=== PATIENT | female | born 1955 | race Caucasian/White ===

== ENCOUNTER 2017-07-06 06:03 | Day surgery (SDC) | payer OTHER ==
[2017-07-06] MEDS ORDERED: Dextrose 5%-Lactated Ringers 1,000 ML IV SCH (06:30)
[2017-07-06] MEDS ORDERED: Propofol 200 MG/20 ML SDV ONE (07:01)
[2017-07-06] MEDS ORDERED: Midazolam 1 MG/ML 2 ML SDV ONE (07:02)
[2017-07-06] MEDS ORDERED: fentaNYL 100 MCG/2 ML SDV ONE (07:02)
[2017-07-06] MEDS ORDERED: Glycopyrrolate 0.2 MG/ML 2 ML SDV IVPUSH ONE (07:30)
--- NOTE | 2017-07-12 09:55 | OR ---
DATE OF PROCEDURE: 07/06/2017 PREOPERATIVE DIAGNOSES: 1. Gastroesophageal reflux disease. 2. Indications for screening colonoscopy. POSTOPERATIVE DIAGNOSES: 1. Upper GI endoscopy showing:. a. Mild antral gastritis. b. Ruled out multiple gastric polyps. 2. Normal colonoscopic examination. OPERATIVE PROCEDURE: 1. Esophagogastroduodenoscopy with:. a. Biopsies of antrum for CLOtest (56714). b. Gastric polypectomy (18585). 2. Flexible colonoscopy ([id number]). ANESTHESIA: IV sedation. INDICATIONS FOR PROCEDURE: This is a 62-year-old with longstanding history of some epigastric discomfort along with some reflux type symptoms, presently well managed on Prevacid and Reglan. Plan is to proceed with an upper GI endoscopy with biopsies and/or polypectomy as indicated. Additionally, the patient must undergo a screening colonoscopy with biopsies and/or polypectomy as indicated as well. Potential risks including bleeding and perforation were discussed, and the patient wishes to proceed. DETAILS OF PROCEDURE: The patient was taken to the operating room and placed in a left lateral decubitus position. IV sedation was administered, after which the upper GI endoscope was passed orally through the length of the esophagus and into the stomach with retroflexion view of the fundus; thereafter through the pyloric channel and into the proximal duodenum. Findings included a normal hypopharynx, larynx, upper esophageal sphincter, and esophageal body. At the EG junction, there was a minimal if any hiatal hernia. There was no upward extension of the gastroesophageal junction mucosal line or other signs of neoplastic changes and no stricturing identified. Overall, there is no gross inflammation at the EG junction. Within the stomach, it was notable that the parietal cell-bearing portions of the stomach, i.e. those with rugal folds in the fundus and body had multitude of polyps, these most likely would be benign gastric fundic polyps related to long-term PPI use. Otherwise, there is some mild redness in the pre-pyloric area. The pyloric channel and duodenum to the junction of the third and fourth portions were unremarkable. At this point, biopsies were obtained from the antrum and sent for CLOtest for H. pylori and following this, the largest of the polyps was encircled at its base and cauterized with the cautery snare. This was then placed in a basket and retrieved and sent for histologic evaluation. There appeared to be good hemostasis at both biopsy and polypectomy sites. The scope was then withdrawn and attention then taken to the colonoscopy. The initial digital rectal exam was performed and was unremarkable. Colonoscope was then passed into the rectum with retroflexion view of the hemorrhoidal columns which were otherwise unremarkable. Colonoscope was then passed to the level of the cecum. The prep was quite good with there being only small amount of liquid stool present. To that level, no abnormalities were noted. Specifically, there were no diverticula, no areas of colitis, and no polyps or other signs of neoplasia. The scope was then withdrawn and the procedure then concluded. The patient was taken to the recovery room in satisfactory condition. The plan will be to proceed with a repeat colonoscopy in 10 years. We will notify the patient regarding the results of CLOtest and polypectomy specimens. Otherwise, we will continue with the present medical management for upper GI symptoms. Solomon Armstrong MD /[id number]
== END 2017-07-06 10:05 | disposition home or self-care (01) ==
LOC: JP.SDS 06:03
PROVIDERS: ATTEND Surgery
DX: Z12.11 Encounter for screening for malignant neoplasm of colon (principal); K31.7 Polyp of stomach and duodenum; Z88.8 Allergy status to other drugs, medicaments and biological substances
CPT/HCPCS: 43239; 43251; 45378; 87081; 88305; J2250; J2704; J3010; J7042; J3490

== ENCOUNTER 2018-05-30 02:11 | Emergency (ER) | payer OTHER ==
[2018-05-30] MEDS ORDERED: Alum Hydrox/Mag Hydrox/Simeth 30 ML, Lidocaine 2% 15 ML PO ONE ×2 (02:41)
[2018-05-30] MEDS ORDERED: Sodium Chloride 0.9% 10 ML Syringe FLUSH PRN (02:41)
--- NOTE | 2018-05-30 02:48 | EDM.PDOC ---
ED HPI GENERAL MEDICAL PROBLEM - General Chief Complaint: Chest Pain Stated Complaint: CHEST APIN Time Seen by Provider: 05/30/18 02:40 Source of Information: Reports: Patient History Limitations: Reports: No Limitations - History of Present Illness INITIAL COMMENTS - FREE TEXT/NARRATIVE: This lady complains of SSCP radiating to the back that began at 1230 am. It's continuous, made slightly worse (?) by breathing but not movements. She took Prevacid but this didn't help. She didn't try any antacids. Pain is sharp stabbing. No history previous similar problem. - Related Data Allergies Allergy/AdvReac Type Severity Reaction Status Date / Time codeine Allergy Severe Anaphylactic Verified 05/30/18 02:21 Shock estrogens, conjugated Allergy Rash Verified 05/30/18 02:21 [From Premarin] omeprazole AdvReac Nausea Verified 05/30/18 02:21 Home Meds: Home Meds Polyethylene Glycol/Polyvinyl [Hypotears Eye Drops] 1 drop EYEBOTH DAILY [History] Famciclovir [Famvir] 1,500 mg PO ONETIME 08/13/17 [History] Lansoprazole [Prevacid] 15 mg PO ASDIRECTED 05/30/18 [History] Metoclopramide HCl [Reglan] 5 mg PO ASDIRECTED 05/30/18 [History] Past Medical History HEENT History: Reports: Cataract Cardiovascular History: Reports: Other (See Below) Other Cardiovascular History: had an epsisode of chest pressure with stress test. 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: Musculoskeletal History: Reports: Arthritis, Neck Pain, Chronic, Other (See Below) Other Musculoskeletal History: history cortisone injections brittany shoulders, back , right index finger Neurological History: Reports: Vertigo - Infectious Disease History Infectious Disease History: Reports: Chicken Pox, Influenza, Measles, Mumps - Past Surgical History HEENT Surgical History: Reports: Cataract Surgery, Naso-Sinus Surgery, Oral Surgery, Tonsillectomy GI Surgical History: Reports: Appendectomy, Colonoscopy, EGD Female Surgical History: Reports: Breast Biopsy Neurological Surgical History: Reports: None Musculoskeletal Surgical History: Reports: None Social & Family History - Family History Family Medical History: Noncontributory - Tobacco Use Smoking Status *Q: Never Smoker - Caffeine Use Caffeine Use: Reports: Coffee - Recreational Drug Use Recreational Drug Use: No ED ROS GENERAL - Review of Systems Review Of Systems: ROS reveals no pertinent complaints other than HPI. ED EXAM, GENERAL - Physical Exam Exam: See Below Exam Limited By: No Limitations General Appearance: Alert, WD/WN, Mild Distress Eye Exam: Bilateral Eye: Normal Inspection Neck: Supple Respiratory/Chest: Lungs Clear, Normal Breath Sounds, Chest Non-Tender Cardiovascular: Regular Rate, Rhythm, No Murmur Peripheral Pulses: 2+: Radial (L), Radial (R) GI/Abdominal: Non-Tender Back Exam: Normal Inspection Extremities: Normal Inspection Neurological: Alert, Oriented Psychiatric: Normal Affect Skin Exam: Warm, Dry Course - Vital Signs Last Recorded V/S: Last Vital Signs Temp 36.9 C 05/30/18 02:23 Pulse 98 05/30/18 05:27 Resp 16 05/30/18 05:27 BP 91/67 05/30/18 05:27 Pulse Ox 98 05/30/18 05:27 - Orders/Labs/Meds Orders: Active Orders 24 hr Category Date Time Status EKG Documentation Completion [RC] ASDIRECTED Care 05/30/18 02:42 Active Chest 1V Frontal [CR] Urgent Exams 05/30/18 02:41 Taken Nitroglycerin [Nitrostat] Med 05/30/18 02:54 Active 0.4 mg SL Q5M PRN Sodium Chloride 0.9% [Saline Flush] Med 05/30/18 02:41 Active 10 ml FLUSH ASDIRECTED PRN Saline Lock Insert [OM.PC] Urgent Oth 05/30/18 02:41 Ordered EKG 12 Lead [EK] Urgent Ther 05/30/18 02:41 Ordered Medication Orders Nitroglycerin (Nitrostat) 0.4 mg SL Q5M PRN PRN Reason: Chest Pain Last Admin: 05/30/18 03:13 Dose: 0.4 mg Admin: 05/30/18 02:58 Dose: 0.4 mg Sodium Chloride (Saline Flush) 10 ml FLUSH ASDIRECTED PRN PRN Reason: Keep Vein Open Last Admin: 05/30/18 02:46 Dose: 10 ml Labs: Laboratory Tests 05/30/18 05/30/18 05/30/18 Range/Units 02:20 02:41 02:41 WBC 10.8 (4.5-11.0) K/uL RBC 4.73 (3.30-5.50) M/uL Hgb 13.7 (12.0-15.0) g/dL Hct 41.2 (36.0-48.0) % MCV 87 (80-98) fL MCH 29 (27-31) pg MCHC 33 (32-36) % Plt Count 314 (150-400) K/uL Neut % (Auto) 60 (36-66) % Lymph % (Auto) 23 L (24-44) % [place] % (Auto) 11 H (2-6) % Eos % (Auto) 6 H (2-4) % Baso % (Auto) 1 (0-1) % D-Dimer, Quantitative < 100 (0.0-400.0) ng/mL Sodium 139 L (140-148) mmol/L Potassium 4.1 (3.6-5.2) mmol/L Chloride 103 (100-108) mmol/L Carbon Dioxide 30 (21-32) mmol/L Anion Gap 10.1 (5.0-14.0) mmol/L BUN 18 (7-18) mg/dL Creatinine 1.0 (0.6-1.0) mg/dL Est Cr Clr Drug Dosing 46.19 mL/min Estimated GFR (MDRD) 56 L (>60) Glucose 96 (74-106) mg/dL Calcium 8.8 (8.5-10.1) mg/dL Total Bilirubin 0.3 (0.2-1.0) mg/dL AST 24 (15-37) U/L ALT 36 (12-78) U/L Alkaline Phosphatase 67 (46-116) U/L Troponin I < 0.017 (0.000-0.056) ng/mL Total Protein 6.6 (6.4-8.2) g/dL Albumin 3.7 (3.4-5.0) g/dL Globulin 2.9 (2.3-3.5) g/dL Albumin/Globulin Ratio 1.3 (1.2-2.2) 05/30/18 Range/Units 05:30 WBC (4.5-11.0) K/uL RBC (3.30-5.50) M/uL Hgb (12.0-15.0) g/dL Hct (36.0-48.0) % MCV (80-98) fL MCH (27-31) pg MCHC (32-36) % Plt Count (150-400) K/uL Neut % (Auto) (36-66) % Lymph % (Auto) (24-44) % [place] % (Auto) (2-6) % Eos % (Auto) (2-4) % Baso % (Auto) (0-1) % D-Dimer, Quantitative (0.0-400.0) ng/mL Sodium (140-148) mmol/L Potassium (3.6-5.2) mmol/L Chloride (100-108) mmol/L Carbon Dioxide (21-32) mmol/L Anion Gap (5.0-14.0) mmol/L BUN (7-18) mg/dL Creatinine (0.6-1.0) mg/dL Est Cr Clr Drug Dosing mL/min Estimated GFR (MDRD) (>60) Glucose (74-106) mg/dL Calcium (8.5-10.1) mg/dL Total Bilirubin (0.2-1.0) mg/dL AST (15-37) U/L ALT (12-78) U/L Alkaline Phosphatase (46-116) U/L Troponin I < 0.017 (0.000-0.056) ng/mL Total Protein (6.4-8.2) g/dL Albumin (3.4-5.0) g/dL Globulin (2.3-3.5) g/dL Albumin/Globulin Ratio (1.2-2.2) Meds: Medications Generic Name Dose Route Start Last Admin Trade Name Freq PRN Reason Stop Dose Admin Nitroglycerin 0.4 mg 05/30/18 02:54 05/30/18 03:13 Nitrostat SL 0.4 mg Q5M PRN Administration Chest Pain Sodium Chloride 10 ml 05/30/18 02:41 05/30/18 02:46 Saline Flush FLUSH 10 ml ASDIRECTED PRN Administration Keep Vein Open Discontinued Medications Generic Name Dose Route Start Last Admin Trade Name Freq PRN Reason Stop Dose Admin Al Hydroxide/Mg Hydroxide 30 0 ml 05/30/18 02:41 05/30/18 02:45 ml/ Lidocaine HCl 15 ml PO 05/30/18 02:42 15 ml ONETIME ONE Administration Nitroglycerin Confirm 05/30/18 02:55 05/30/18 02:59 Nitrostat Administered 05/30/18 02:56 Not Given Dose 0.4 mg .ROUTE .STK-MED ONE - Re-Assessments/Exams Free Text/Narrative Re-Assessment/Exam: 05/30/18 06:24 2 ekg's show nsr with normal QRS, ST and T waves. 2 troponins neg. D-dimer neg. Initially she received a GI cocktail that had no effect. She then received 2 sl NTG. first one brought pain from 7 to 2. A second one relieved it completely. A 3 hour troponin was done and was neg. Pain likely due to esophageal spasm. Will need to decide if she needs stress testing and she will discuss with her doctor and her Dr Magallanes. Departure - Departure Time of Disposition: 06:17 Disposition: Home, Self-Care 01 Condition: Fair Clinical Impression: Chest pain Instructions: Nonspecific Chest Pain Referrals: PCP,None [Primary Care Provider] - Forms: ED Department Discharge Additional Instructions: Most likely this pain was caused by an esophageal spasm. All tests were negative. You and your doctor will need to decide whether or not you need further testing such as a stress test. Ask your doctor if 81 mg aspirin daily would be advisable. - My Orders Last 24 Hours: My Active Orders 05/30/18 02:41 Chest 1V Frontal [CR] Urgent Sodium Chloride 0.9% [Saline Flush] 10 ml FLUSH ASDIRECTED PRN Saline Lock Insert [OM.PC] Urgent EKG 12 Lead [EK] Urgent 05/30/18 02:42 EKG Documentation Completion [RC] ASDIRECTED 05/30/18 02:54 Nitroglycerin [Nitrostat] 0.4 mg SL Q5M PRN - Assessment/Plan Last 24 Hours: My Active Orders 05/30/18 02:41 Chest 1V Frontal [CR] Urgent Sodium Chloride 0.9% [Saline Flush] 10 ml FLUSH ASDIRECTED PRN Saline Lock Insert [OM.PC] Urgent EKG 12 Lead [EK] Urgent 05/30/18 02:42 EKG Documentation Completion [RC] ASDIRECTED 05/30/18 02:54 Nitroglycerin [Nitrostat] 0.4 mg SL Q5M PRN
[2018-05-30] MEDS ORDERED: Nitroglycerin 0.4 MG Tab.SL ONE (02:55)
[2018-05-30] MEDS: Nitroglycerin 0.4 MG Tab.SL SL PRN ×2 (02:58→03:13)
--- NOTE | 2018-05-31 08:54 | CR ---
CHEST: Portable CLINICAL HISTORY:Chest pain COMPARISON:None FINDINGS: The lungs are hyperaerated but clear. Heart size and pulmonary vascularity are normal. The re are atherosclerotic changes in the aorta. Impression: Emphysematous changes No acute cardiopulmonary process.
== END 2018-05-30 06:34 | disposition home or self-care (01) ==
LOC: JP.ED 02:11
DX: R07.9 Chest pain, unspecified (principal); Z88.5 Allergy status to narcotic agent; Z88.8 Allergy status to other drugs, medicaments and biological substances
CPT/HCPCS: 36415; 71045; 80053; 84484; 85025; 85379; 93005; 99285; A9270; J7050

== ENCOUNTER 2021-08-27 05:32 | Day surgery (SDC) | payer OTHER ==
[2021-08-27] MEDS ORDERED: Dextrose 5%-Lactated Ringers 1,000 ML IV SCH (06:00)
[2021-08-27] MEDS ORDERED: Acetaminophen 500 MG Tab PO ONE (06:00)
[2021-08-27] MEDS ORDERED: cefOXitin 2 GM in Sodium Chloride 0.9% 50 ML IV ONE (06:00)
[2021-08-27] MEDS ORDERED: fentaNYL 250 MCG/5 ML SDV ONE (06:09)
[2021-08-27] MEDS ORDERED: Glycopyrrolate 0.2 MG/ML 5 ML MDV ONE (06:11)
[2021-08-27] MEDS ORDERED: Propofol 200 MG/20 ML SDV ONE (06:11)
[2021-08-27] MEDS ORDERED: Neostigmine Methylsulfate 1 MG/ML 5 ML Syringe ONE (06:11)
[2021-08-27] MEDS ORDERED: Ketorolac 30 MG/ML SDV ONE (06:11)
[2021-08-27] MEDS ORDERED: Lidocaine 2% 5 ML SDV ONE (06:11)
[2021-08-27] MEDS ORDERED: Rocuronium 50 MG/5 ML Vial ONE (06:11)
[2021-08-27] MEDS ORDERED: Ondansetron 4 MG/2 ML SDV ONE (06:11)
[2021-08-27] MEDS ORDERED: Dexamethasone 4 MG/ML SDV ONE (06:11)
[2021-08-27] MEDS ORDERED: Bupivacaine 0.5%/EPINEPHrine 1:200,000 50 ML MDV ONE (06:32)
[2021-08-27] MEDS ORDERED: Ibuprofen 200 MG Tab, 24 Tab Bulk Bottle PO ONE (06:40)
[2021-08-27] MEDS ORDERED: Midazolam 1 MG/ML 2 ML SDV ONE (07:12)
[2021-08-27] MEDS ORDERED: Ibuprofen 600 MG Tab PO ONE (07:15)
[2021-08-27] MEDS ORDERED: Ketamine 500 MG/5 ML MDV IV SCH (07:30)
[2021-08-27] MEDS ORDERED: Ketamine 16 MG in Sodium Chloride 0.9% 19.84 ML IV SCH (07:30)
[2021-08-27] MEDS ORDERED: Lidocaine 1% 50 ML MDV ONE (07:34)
[2021-08-27] MEDS ORDERED: Sugammadex Sodium 200 MG/2 ML VIAL ONE (07:55)
[2021-08-27] MEDS ORDERED: Sodium Chloride 0.9% 10 ML ONE (08:28)
[2021-08-27] MEDS ORDERED: Naloxone 0.4 MG/ML SDV ONE (08:28)
[2021-08-27] MEDS ORDERED: fentaNYL 100 MCG/2 ML SDV IVPUSH ONE (09:00)
[2021-08-27] MEDS ORDERED: traMADol 50 MG Tab PO ONE (10:01)
--- NOTE | 2021-08-29 10:03 | OR ---
DATE OF PROCEDURE: 08/27/2021 SURGEON: Solomon Armstrong MD PREOPERATIVE DIAGNOSIS: Biliary dyskinesia. POSTOPERATIVE DIAGNOSES: 1. Biliary dyskinesia. 2. Enlarged cricket hepatis lymph node. OPERATIVE PROCEDURES: Diagnostic laparoscopy with: 1. Cholecystectomy (85228). 2. Excision of cricket hepatis lymph node ([id number]). ANESTHESIA: General. ASSISTANTS: Mariella Krueger PA-C, and CARMELO Mejia. INDICATION FOR PROCEDURE: A 66-year-old female presenting with some ongoing postprandial nausea and epigastric discomfort. A CCK-stimulated HIDA scan was undertaken as part of the workup, which showed a below-normal ejection fraction, and it reproduced at least a portion of the patient's symptoms. The plan is to proceed with a laparoscopic or if necessary open cholecystectomy. Potential risks of the procedure; including bleeding; infection; injury to underlying viscera; possible migration of any stones into the common bile duct, which might require additional procedures for correction; and possibility of persistent symptoms postoperatively; were all reviewed; and the patient wishes to proceed. DETAILS OF PROCEDURE: The patient was taken to the operating room and placed in a supine position. After general endotracheal anesthesia was induced, she was converted to a lithotomy position and the abdomen prepped and draped. A transverse subumbilical incision was made and a Veress needle inserted. The peritoneal cavity was inflated to 15 mmHg pressure with CO2, after which an Optiview trocar was placed through the subumbilical incision site and into the intraperitoneal cavity. No underlying trocar insertion site injury was evident. Upon entrance of the scope once again a 12 mm epigastric trocar was placed along with a 5 mm right abdominal trocar. Bilateral transversus abdominis plane blocks were then placed. The gallbladder was noted to be somewhat edematous and somewhat montes in appearance and not a normal . This was retracted anteriorly and laterally, and dissection began on the gallbladder neck with Harmonic scalpel and continued around the gallbladder neck and cystic duct junction. Cystic artery and adjacent cystic duct were then identified, and both were clipped 3 times proximally and once distally and divided. The gallbladder was then dissected off the gallbladder bed using a combination of Harmonic scalpel and cautery and delivered intact through the epigastric trocar site. A small amount of sludge was present within the gallbladder, which was evacuated upon opening of the gallbladder. The patient had a prominent cricket hepatis lymph node that was located in somewhat of a retroperitoneal area behind the portal vein and common bile duct. This was excised and sent for histologic evaluation and was probably related to the inflammation of the gallbladder at the neck and neoplastic. At this point, no further problems were noted. The trocars were removed and the peritoneal cavity deflated. The fascia at the 12 mm trocar site was closed with 0 Vicryl stitch and the skin with 4-0 Vicryl skin stitch. The wounds were anesthetized with 1% lidocaine mixed with Marcaine. No drain was placed. The patient was taken to the recovery room in satisfactory condition. Physician communications assistant, Mariella Krueger, played an essential role in assisting in this case, helping to position the patient and retract structures as needed as well as suturing and cutting sutures as indicated. Her presence improved patient safety and decreased the operative time. Solomon Armstrong MD /[id number]
== END 2021-08-27 12:00 | disposition home or self-care (01) ==
LOC: JP.SDS 05:32
PROVIDERS: ATTEND Surgery
DX: K81.1 Chronic cholecystitis (principal); K82.8 Other specified diseases of gallbladder; R59.0 Localized enlarged lymph nodes; E78.5 Hyperlipidemia, unspecified; M81.0 Age-related osteoporosis without current pathological fracture; J45.909 Unspecified asthma, uncomplicated; Z79.899 Other long term (current) drug therapy; Z88.5 Allergy status to narcotic agent; Z88.7 Allergy status to serum and vaccine; Z90.49 Acquired absence of other specified parts of digestive tract; Z88.8 Allergy status to other drugs, medicaments and biological substances
CPT/HCPCS: 36415; 38570; 47562; 80053; 83735; 84100; 85027; A9270; J0171; J0694; J1100; J1885; J2001; J2250; J2310; J2405; J2704; J2795; J3010; J3490; J7121; J2710

== ENCOUNTER 2022-10-17 07:00 | Day surgery (SDC) | payer OTHER ==
[~2022-10-17 07:00] MED LIST: Midazolam 1 MG/ML 2 ML SDV ONE; Propofol 200 MG/20 ML SDV ONE; fentaNYL 50 MCG/ML SDV ONE
[2022-10-17] MEDS ORDERED: Dextrose 5%-Lactated Ringers 1,000 ML IV SCH (07:30)
[2022-10-17] MEDS ORDERED: Propofol 200 MG/20 ML SDV ONE (09:42)
[2022-10-17] MEDS ORDERED: Pantoprazole 40 MG Vial IVPUSH ONE (10:07)
== END 2022-10-17 12:00 | disposition home or self-care (01) ==
LOC: JP.SDS 07:00
PROVIDERS: ATTEND Surgery
DX: K29.70 Gastritis, unspecified, without bleeding (principal); K20.90 Esophagitis, unspecified without bleeding; K44.9 Diaphragmatic hernia without obstruction or gangrene; K57.30 Diverticulosis of large intestine without perforation or abscess without bleeding
CPT/HCPCS: 87081; C9113; J2250; J2704; J3010; J7121

== ENCOUNTER 2023-12-17 06:26 | Day surgery (SDC) | payer OTHER ==
[2023-12-17] MEDS: Sodium Chloride 0.9% 1,000 ML IV SCH (07:16)
[2023-12-17] MEDS ORDERED: Propofol 200 MG/20 ML SDV ONE (07:19)
[2023-12-17] MEDS ORDERED: fentaNYL 100 MCG/2 ML SDV ONE (07:19)
== END 2023-12-17 09:15 | disposition home or self-care (01) ==
LOC: JP.SDS 06:26
PROVIDERS: ATTEND Surgery
DX: K22.70 Barrett's esophagus without dysplasia (principal); K22.89 Other specified disease of esophagus; J45.909 Unspecified asthma, uncomplicated; E78.5 Hyperlipidemia, unspecified
CPT/HCPCS: J2704; J3010; J7030

== ENCOUNTER 2024-04-02 17:28 | Emergency (ER) | payer OTHER ==
[2024-04-02 17:41] LABS: BASOPHILS ABSOLUTE AUTO 0.07 K/uL (0.00-0.10); BASOPHILS PERCENT AUTO 0.9 % (0.1-1.3); EOSINOPHILS ABSOLUTE AUTO 0.21 K/uL (0.00-0.40); EOSINOPHILS PERCENT AUTO 2.8 % (0.0-5.4); HEMATOCRIT 38.3 % (34.3-46.0); HEMOGLOBIN 13.3 g/dL (11.2-15.5); IMMATURE GRAN PERCENT AUTO 0.3 % (0.0-0.7); LYMPHOCYTES ABSOLUTE AUTO 2.03 K/uL (0.8-3.3); LYMPHOCYTES PERCENT AUTO 27.3 % (11.4-47.7); MEAN CORPUSCULAR HEMOGLOBIN 29.8 pg (31.6-35.5); MEAN CORPUSCULAR HGB CONC 34.7 g/dL (31.6-35.5); MEAN CORPUSCULAR VOLUME 85.7 fL (81.4-99.0); MONOCYTES ABSOLUTE AUTO 0.61 K/uL (0.20-0.90); MONOCYTES PERCENT AUTO 8.2 % (3.3-12.6); NEUTROPHILS PERCENT AUTO 60.5 % (40.0-78.1); PLATELET COUNT,PLT 269 K/uL (130-375); RED BLOOD CELL COUNT 4.47 M/uL (3.77-5.24); WHITE BLOOD CELL COUNT,WBC 7.4 K/uL (3.2-11.0)
[2024-04-02 17:42] LABS: CREATININE 1.1 mg/dL (0.5-1.0); EST CRCL DRUG DOSING (CG) 37.62 mL/min; IMMATURE GRAN ABSOLUTE AUTO 0.02 K/uL (0.00-0.23)
[2024-04-02 17:59] LABS: ANION GAP 13.9 mmol/L (5.0-14.0); CALCIUM 8.7 mg/dL (8.5-10.1); POTASSIUM,K 3.9 mmol/L (3.6-5.2)
[2024-04-02] MEDS: Sodium Chloride 0.9% 80 ML IV SCH (18:12)
[2024-04-02] MEDS: Iopamidol 612 MG/ML 100 ML Bottle IV SCH (18:12)
[2024-04-02] MEDS: Sodium Chloride 0.9% 1,000 ML IV ONE (18:21)
== END 2024-04-02 19:53 | disposition home or self-care (01) ==
LOC: JP.ED 17:28
DX: R10.12 Left upper quadrant pain (principal); M54.2 Cervicalgia; Z88.8 Allergy status to other drugs, medicaments and biological substances; Z79.899 Other long term (current) drug therapy; Z90.49 Acquired absence of other specified parts of digestive tract; V49.50XA Passenger injured in collision with unspecified motor vehicles in traffic accident, initial encounter
CPT/HCPCS: 36415; 70450; 71260; 72125; 74177; 76377; 80048; 85025; 99285; J3490; J7030; Q9967